=== PATIENT | male | born 1990 | race Two or more races ===

== ENCOUNTER 2017-01-16 07:41 | Emergency (ER) | payer SELFPAY ==
[2017-01-16 07:51] VITALS: TEMP 99.1; BMI 21.7
--- NOTE | 2017-01-16 08:02 | PDOC ---
Attending Attestation - Resident Resident Name: Zeyad Zheng - ED Attending Attestation I have performed the following: I have examined & evaluated the patient, The case was reviewed & discussed with the resident, I agree w/resident's findings & plan, Exceptions are as noted - HPI HPI: 26 yo M no PMH presents with low back pain since yesterday. He states that he was throwing water balloons with his daughter yesterday, turned his back very rapidly, and developed abrupt onset of L low back pain radiating into the B/L legs. The pain in the L leg is much worse, and he notes weakness in that leg. He also notes that he has tingling to the R leg. He has difficulty moving his L foot, and was limping to get into the ED today. He has been unable to find a comfortable position to sleep. No fever. No prior similar symptoms. - Physicial Exam PE: GENERAL: Awake, alert, and fully oriented, in no acute distress HEAD: No signs of trauma EYES: PERRLA, EOMI, sclera anicteric, conjunctiva clear ENT: Auricles normal inspection, hearing grossly normal, nares patent, oropharynx clear without exudates. Moist mucosa NECK: Normal ROM, supple, no lymphadenopathy, JVD, or masses LUNGS: Breath sounds equal, clear to auscultation bilaterally. No wheezes, and no crackles HEART: Regular rate and rhythm, normal S1 and S2, no murmurs, rubs or gallops ABDOMEN: Soft, nontender, normoactive bowel sounds. No guarding, no rebound. No masses EXTREMITIES: Normal range of motion, no edema. No clubbing or cyanosis. No cords, erythema, or tenderness NEUROLOGICAL: Cranial nerves II through XII grossly intact. Normal speech. Gait not tested due to nature of complaint. Sensation to pinprick intact to BLE. Limited dorsiflexion of the L foot. 4/5 strength to LLE, 5/5 to RLE. SKIN: Warm, Dry, normal turgor, no rashes or lesions noted. - Medical Decision Making Patient with abrupt onset low back pain radiating to the legs B/L, much worse on the L side. With L foot drop. Attempted to obtain stat lumbar MRI, however, patient with history of metal plate in his head, unknown what type of metal. It was placed in [place] more than 10 years ago, no way to find out what type of plate. CT was obtained, found to have disc bulge. 

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
[2017-01-16] MEDS ORDERED: morphine CARPU-JECT 4 MG/1 ML DISP.SYRIN IVPUSH ONE ×3 (08:29→13:22)
[2017-01-16] MEDS ORDERED: morphine CARPU-JECT 2 MG/1 ML DISP.SYRIN ONE (08:35)
[2017-01-16] MEDS ORDERED: morphine CARPU-JECT 4 MG/1 ML DISP.SYRIN ONE ×2 (08:35→13:29)
[2017-01-16 09:00] LABS: BASOPHIL 0.5 % (0-2.0); EOSINOPHIL 0.4 % (0-4.5); MCH 30.8 pg (25.7-33.7); MCHC 33.5 g/dl (32.0-35.9); MEAN CELL VOLUME 91.7 fl (80-96); MEAN PLT VOLUME 8.3 fl (7.5-11.1); NEUTROPHILS 82.6 % (42.8-82.8); PLATELET COUNT 142 K/MM3 (134-434); RDW 13.1 % (11.9-15.9); WHITE BLOOD COUNT 8.1 K/mm3 (4.0-10.0)
[2017-01-16 09:24] LABS: ALK PHOS 59 U/L (45-117); ANION GAP 9 (8-16); BILIRUBIN,TOTAL 0.5 mg/dL (0.2-1.0); CALCIUM 8.5 mg/dL (8.5-10.1); CO2 27 mmol/L (21-32); CREATININE 1.2 mg/dL (0.7-1.3); GLUCOSE,RANDOM 94 mg/dL (74-106); SGOT/AST 20 U/L (15-37); SGPT/ALT 25 U/L (12-78); TOT PROT 6.7 g/dl (6.4-8.2)
[2017-01-16 09:29] LABS: INR 1.2 (0.82-1.09); PROTHROMBIN TIME (PATIENT) 13.3 SEC (9.98-11.88)
[2017-01-16 16:06] VITALS: BP 104/54; PULSE 109
== END 2017-01-16 16:08 | disposition short-term general hospital (02) ==
LOC: JER 07:41
PROC: 3E033NZ Introduction of Analgesics, Hypnotics, Sedatives into Peripheral Vein, Percutaneous Approach (ICD-10-PCS; principal; 2017-01-16)
DX: M54.42 Lumbago with sciatica, left side (principal); M21.372 Foot drop, left foot
CPT/HCPCS: 36415; 70260-TC; 72131-TC; 80053; 85025; 85610; 85730; 99284-25

== ENCOUNTER 2018-11-27 14:28 | Emergency (ER) | payer OTHER ==
[2018-11-27 14:34] VITALS: BP 113/75; PULSE 81; TEMP 98.2; BMI 23.1
[2018-11-27] MEDS ORDERED: DIPHTH,PERTUSS(ACELL),TET 0.5 ML DISP.SYRIN IM ONE ×2 (17:16→17:33)
[2018-11-27] MEDS ORDERED: ACETAMINOPHEN 500 MG TABLET (FP) PO ONE (17:16)
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
== END 2018-11-27 18:22 | disposition home or self-care (01) ==
LOC: JERFT 14:28
PROC: 3E0304Z Introduction of Serum, Toxoid and Vaccine into Peripheral Vein, Open Approach (ICD-10-PCS; principal; 2018-11-27)
PROC: 0HQ3XZZ Repair Left Ear Skin, External Approach (ICD-10-PCS; 2018-11-27)
DX: S01.312A Laceration without foreign body of left ear, initial encounter (principal); W31.89XA Contact with other specified machinery, initial encounter; Y93.89 Activity, other specified; Y92.69 Other specified industrial and construction area as the place of occurrence of the external cause; Y99.0 Civilian activity done for income or pay
CPT/HCPCS: 90715; 99281-25

== ENCOUNTER 2018-12-05 15:51 | Emergency (ER) | payer OTHER | END 2018-12-05 16:19 | disposition home or self-care (01) | LOC: JERFT 15:51 ==